=== PATIENT | male | born 1955 | race Caucasian/White ===

== ENCOUNTER 2021-03-30 12:13 | Emergency (ER) | payer OTHER, SELFPAY ==
--- NOTE | ~2021-03-30 | XR_ITS ---
EXAMINATION: XR shoulder LT min 2V DATE: 03/30/2021 12:34 INDICATION: Lateral left shoulder pain TECHNIQUE: AP internally and externally rotated, AP oblique externally rotated and axillary views of the left shoulder were obtained. COMPARISON: None FINDINGS: Normal alignment. No fracture. Glenohumeral joint is normal. Moderate acromioclavicular osteoarthrit is. Soft tissues are unremarkable. Visualized portions of the lungs are clear. IMPRESSION: Moderate acromioclavicular osteoarthritis. No acute osseous abnormality. Reviewed, dictated and finalized at location A.
--- NOTE | 2021-03-30 12:16 | ED.GENADULT ---
HPI - General Adult General Chief complaint: Extremity Injury, Upper Stated complaint: lt shoulder injury Time Seen by Provider: 03/30/21 12:50 Source: patient and RN notes reviewed Mode of arrival: ambulatory Limitations: no limitations History of Present Illness HPI narrative: 65-year-old male presents with concern for left shoulder pain. 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 Reports no pain at rest, pain with extension of the shoulder. Denies intervention. Denies distal weakness, decreased range of motion or sensation. Denies redness, bruising, open skin. MD complaint: Shoulder pain Related Data Home Medications Medication Instructions Recorded Confirmed lisinopril-hydrochlorothiazide 1 tablet PO DAILY 03/30/21 03/30/21 Allergies Allergy/AdvReac Type Severity Reaction Status Date / Time No Known Allergies Allergy Verified 03/30/21 12:26 Review of Systems Review of Systems: Narrative: CONSTITUTIONAL: Denies malaise, chills, sweats, or fever. CARDIOVASCULAR: Denies chest pain, palpitations, or edema. RESPIRATORY: Denies cough or dyspnea. SKIN: Denies bruising, abrasions, lacerations MUSCULOSKELETAL: Reports left shoulder pain, denies swelling, bruising NEUROLOGIC: Denies numbness, weakness All systems reviewed & are unremarkable except as noted in HPI and below PMFSH Comments At time of signature, agree with nursing past medical, surgical, social and family history. There is no relevant family history pertinent to the presenting complaint Exam Narrative: Exam Narrative: GENERAL: Well-appearing, well-nourished, and in no acute distress. HEAD: Normocephalic, atraumatic. EYES: PERRLA, conjunctivae clear NECK: Supple. CHEST: Speaks in full sentences. No respiratory distress. HEART: Regular rate and rhythm. Normal and equal peripheral pulses. EXTREMITIES: Left shoulder has normal strength and sensation, normal range of motion. No edema or ecchymosis. 5/5 strength with shoulder abduction, abduction, flexion and extension. Normal sensation with sensitivity to light touch and pain. ACL tenderness. No open wounds, no skin tenting, no devitalized tissue or atrophy, no trophic changes, no obvious deformity, alignment normal, nearby joints and structures intact. Distal pulses palpable and equal bilaterally, skin warm, dry, pink. Capillary refill less than 3 seconds. SKIN: Warm, dry, no rash. NEURO: Alert and oriented x3. PSYCH: Normal mood and affect Course Course Emergency Course: Patient is aware of diagnosis, understands and agrees to treatment plan. Anticipatory guidance given. Patient agrees to follow-up as directed and is aware of reasons to seek care at the emergency department. Portions of this record may have been created with voice recognition software Vital Signs Vital signs: Reviewed. Patient has history of hypertension Medical Decision Making MDM Narrative Medical decision making narrative: Patients injury and pain is consistent with musculoskeletal etiology. No signs of neurological or vascular compromise on exam. Compartments and tissues are soft without signs of compartment syndrome. Pain is felt appropriate for further evaluation on an outpatient basis. Imaging Data My impression: Images reviewed, interpreted by radiologist, agree, see report. Radiologist's impression: EXAMINATION: XR shoulder LT min 2V DATE: 03/30/2021 12:34 INDICATION: Lateral left shoulder pain TECHNIQUE: AP internally and externally rotated, AP oblique externally rotated and axillary views of the left shoulder were obtained. COMPARISON: None FINDINGS: Normal alignment. No fracture. Glenohumeral joint is normal. Moderate acromioclavicular osteoarthritis. Soft tissues are unremarkable. Visualized portions of the lungs are clear. IMPRESSION: Moderate acromioclavicular osteoarthritis. No acute osseous abnormality. Critical Care Time Critical C
[2021-03-30 12:21] VITALS: BP 139/95; PULSE 61; RESP 12; TEMP 37; O2SAT 99
== END 2021-03-30 13:04 | disposition home or self-care (01) ==
PROVIDERS: Emergency Provider Nurse Practitioner
DX: S49.92XA Unspecified injury of left shoulder and upper arm, initial encounter (principal); X50.3XXA Overexertion from repetitive movements, initial encounter; Y99.0 Civilian activity done for income or pay; I10 Essential (primary) hypertension
CPT/HCPCS: 73030; 99213; G0463

== ENCOUNTER 2021-04-25 13:04 | Outpatient (CLI) | payer OTHER, SELFPAY ==
--- NOTE | ~2021-04-25 | MR_ITS ---
EXAMINATION: MR shoulder LT wo con DATE: 04/25/2021 14:11 INDICATION: Left shoulder pain TECHNIQUE: Magnetic resonance imaging (MRI) of the left shoulder was performed without intravenous co ntrast. Sequences included axial PD-weighted FS FSE, coronal oblique PD-weighted FS FSE, coronal obli que T2-weighted FS FSE, sagittal PD-weighted FS FSE, and sagittal T1-weighted SE. COMPARISON: Left shoulder radiographs dated 03/30/2021 FINDINGS: Coracoacromial arch: The acromion undersurface is curved in morphology (type II). The coracoacromial ligament is normal. S evere acromioclavicular osteoarthritis with small inferiorly directed osteophytes which abut and exer t minimal mass effect upon the cephalad surface of the distal supraspinatus muscle belly. Rotator cuff: Moderate tendinopathy of the distal supraspinatus tendon and mild infraspinatus tendinopathy. Small s hallow bursal sided tear involving no greater than one third of the tendon thickness and extending 10 mm AP along the central superior facet footplate of the supraspinatus tendon. The subscapularis and teres minor tendons are normal. Normal rotator cuff muscle bulk and signal. Biceps tendon, glenoid labrum and glenohumeral cartilage: Long head of the biceps tendon is normal. There is a tear of the inferior glenoid labrum extending fr om the 8:00 position posteriorly to at least the 3:00 position aspect more cephalad to the 1:00 posit ion although this could be due to small labrum overlying a normal sublabral foramen. There is a small paravertebral cyst originating at the 6:00 position and extending 1.6 cm posterior inferiorly and me asuring up to 4 x 5 mm in maximal transaxial dimensions. Small region of partial-thickness chondral u lceration without degenerative subchondral changes at the posterior inferior glenoid. Mild chondral s urface irregularity along the anterior inferomedial aspect of the humeral head also without degenerat odalis subchondral changes. Fluid: Physiologic amount of fluid in the glenohumeral joint and biceps tendon sheath. No loose osteochondra l bodies. Small amount of fluid in the subacromial/subdeltoid bursa as well as the subscapular bursa consistent with mild bursitis. Bones: Bone alignment is normal. No fracture. No pathologic marrow replacing process. IMPRESSION: 1. Moderate supraspinatus tendinopathy with small mild bursal sided tear along the superior facet elfego tplate. 2. Mild glenohumeral osteoarthritis with tear of the inferior glenoid labrum and associated small par alabral cyst. 3. Severe acromioclavicular osteoarthritis. 4. Mild subacromial/subdeltoid and subscapular bursitis. Reviewed, dictated and finalized at location A. IMPRESSION: 1. Moderate supraspinatus tendinopathy with small mild bursal sided tear along the superior facet footplate. 2. Mild glenohumeral osteoarthritis with tear of the inferior glenoid labrum an d associated small paralabral cyst. 3. Severe acromioclavicular osteoarthritis. 4. Mild subacromial/subdeltoid and subscapular bursitis.
== END 2021-04-25 13:05 | disposition home or self-care (01) ==
LOC: ANHIMG 13:12
PROVIDERS: PCP Internal Medicine; Visit Provider Orthopaedic Surgery
DX: M25.512 Pain in left shoulder (principal); M75.82 Other shoulder lesions, left shoulder; M19.012 Primary osteoarthritis, left shoulder; M75.52 Bursitis of left shoulder
CPT/HCPCS: 73221